=== PATIENT | female | born 1965 | race Hispanic/Latino ===

== ENCOUNTER 2024-05-31 12:18 | Emergency (ER) | payer OTHER, MEDICARE ==
[~2024-05-31] VITALS: Ht 162.6 cm; Wt 83.9 kg
[2024-05-31] MEDS: ketOROlac 60 MG VIAL (30MG/ML) IM ONE (14:06)
[2024-05-31] MEDS ORDERED: IBUP-2077 PO (15:12)
[2024-05-31 15:15] VITALS: BP 138/72; PULSE 62; RESP 20; TEMP 98.2; O2SAT 99
== END 2024-05-31 15:20 | disposition home or self-care (01) ==
LOC: EDH 12:18
DX: S80.02XA Contusion of left knee, initial encounter (principal); S80.01XA Contusion of right knee, initial encounter; S20.229A Contusion of unspecified back wall of thorax, initial encounter; S30.0XXA Contusion of lower back and pelvis, initial encounter; Z98.890 Other specified postprocedural states; W18.39XA Other fall on same level, initial encounter; Y93.89 Activity, other specified; Y92.89 Other specified places as the place of occurrence of the external cause; Y99.8 Other external cause status
CPT/HCPCS: 99284; 73562; 72100; 72070; 96372; J1885